=== PATIENT | female | born 1935 | race Caucasian/White ===

== ENCOUNTER 2022-12-04 19:50 | Inpatient (IN) | payer MEDICARE, OTHER ==
[~2022-12-04] VITALS: Ht 142.2 cm; Wt 41.3 kg
[~2022-12-04 19:50] MED LIST: Acetaminophen PO; BISA10SU12 RC; DOCU-141 PO; Gabapentin PO; LOSA50TA39 PO; MENT71OI TOP; Temazepam PO
[2022-12-04] MEDS ORDERED: KETOROLAC TROMETHAMINE 15 MG INJ IVP ONE (20:15)
[2022-12-04] MEDS ORDERED: IV NORMAL SALINE 500 ML IV ONE (20:30)
[2022-12-04] MEDS ORDERED: KETOROLAC TROMETHAMINE 15 MG INJ ONE (20:39)
[2022-12-04 20:58] LABS: BASOPHILS # (AUTO) 0.1 K/UL (0.0-0.2); BASOPHILS % (AUTO) 0.5 % (0.0-2.0); EOSINOPHILS # (AUTO) 0.1 K/uL (0.0-0.7); EOSINOPHILS % (AUTO) 0.7 % (0.0-7.0); HEMATOCRIT 41.7 % (31.2-41.9); HEMOGLOBIN 13.9 g/dL (10.9-14.3); LYMPHOCYTES # (AUTO) 0.5 K/uL (0.8-4.8); MEAN CORPUSCULAR HEMOGLOBIN 28.5 uug (24.7-32.8); MEAN CORPUSCULAR HGB CONC 33 g/dL (32.3-35.6); MEAN CORPUSCULAR VOLUME 85.5 fL (75.5-95.3); MONOCYTES # (AUTO) 0.6 K/uL (0.1-1.30); MONOCYTES % (AUTO) 5.3 % (0.0-11.0); NEUTROPHILS # (AUTO) 10.4 K/uL (1.8-8.9); NEUTROPHILS % (AUTO) 89.5 % (38.5-71.5); PLATELET COUNT (AUTO) 256 K/uL (179-408); RED BLOOD CELL COUNT(AUTO) 4.88 MIL/uL (3.63-4.92); RED CELL DISTRIBUTION WIDTH 14.1 % (12.3-17.7); WHITE BLOOD COUNT (AUTO) 11.6 K/uL (3.8-11.8)
[2022-12-04 20:59] LABS: DIFFERENTIAL COMMENT 1
[2022-12-04 21:12] LABS: ETHANOL < 3 MG/DL (0-10)
[2022-12-04 21:15] LABS: ALANINE AMINOTRANSFERASE 10 U/L (14-59); ALBUMIN 3.7 g/dL (3.4-5.0); ALKALINE PHOSPHATASE 70 U/L (50-136); ASPARTATE AMINOTRANSFERASE 14 U/L (15-37); BILIRUBIN,DIRECT 0.3 mg/dL (0.0-0.2); BILIRUBIN,TOTAL 1.2 mg/dL (0.2-1.0); CALCIUM 9.9 mg/dL (8.5-10.1); CHLORIDE 91 mmol/L (98-107); CREATININE 1.5 mg/dL (0.6-1.3); GLUCOSE 135 mg/dL (74-106); SODIUM SERUM 133 mmol/L (136-145); TOTAL PROTEIN, SERUM 6.9 g/dL (6.4-8.2); UREA NITROGEN, BLOOD 72 mg/dL (7-18)
[2022-12-04 21:23] LABS: POTASSIUM 2.5 mmol/L (3.5-5.1)
[2022-12-04 21:24] LABS: CARBON DIOXIDE 43 mmol/L (21-32)
[2022-12-04] MEDS ORDERED: IV NS 1000 ML 1,000 ML IV ONE (21:30)
[2022-12-04] MEDS ORDERED: LIDOCAINE HCL 1% 20 ML VIAL IJ ONE (21:30)
[2022-12-04] MEDS ORDERED: POTASSIUM CHLORIDE 150 ML ONE (21:48)
[2022-12-04] MEDS ORDERED: MAGNESIUM SULFATE/D5W 200 ML ONE (21:49)
[2022-12-04] MEDS: MAGNESIUM SULFATE/D5W 100 ML IV SCH (21:55)
[2022-12-04] MEDS ORDERED: FURO40TA5 PO (22:54)
[2022-12-04] MEDS ORDERED: CHLO25TA2 PO (22:54)
[2022-12-04] MEDS ORDERED: MAGNESIUM HYDROXIDE 30 ML LIQUID UDC PO PRN (23:00)
[2022-12-04] MEDS ORDERED: ONDANSETRON 4 MG/2 ML VIAL IV PRN (23:00)
[2022-12-04] MEDS ORDERED: REMEDY ESSENTIAL ZINC PASTE 113 GM TP PRN (23:00)
[2022-12-04] MEDS ORDERED: IV NS 1000 ML 1,000 ML IV PRN (23:00)
[2022-12-04] MEDS ORDERED: MORPHINE SULFATE 2 MG/1 ML DISP.SYRIN IV PRN (23:00)
[2022-12-04] MEDS: POTASSIUM CHLORIDE 50 ML IV SCH ×2 (23:23→23:24)
[2022-12-05] MEDS ORDERED: TDAP DIPH,PERTUSS,TET VAC/PF 0.5 ML DISP.SYRIN IM ONE ×2 (00:57→01:45)
[2022-12-05] MEDS: POTASSIUM CHLORIDE 50 ML IV SCH ×5 (01:34→15:47)
[2022-12-05] MEDS ORDERED: IV NORMAL SALINE 500 ML BAG IV ONE (06:30)
[2022-12-05 06:31] LABS: BASOPHILS # (AUTO) 0.1 K/UL (0.0-0.2); BASOPHILS % (AUTO) 0.7 % (0.0-2.0); EOSINOPHILS # (AUTO) 0.1 K/uL (0.0-0.7); EOSINOPHILS % (AUTO) 1.1 % (0.0-7.0); HEMOGLOBIN 12.2 g/dL (10.9-14.3); LYMPHOCYTES # (AUTO) 1.3 K/uL (0.8-4.8); LYMPHOCYTES % (AUTO) 12.5 % (20.5-51.5); MEAN CORPUSCULAR HEMOGLOBIN 29.1 uug (24.7-32.8); MEAN CORPUSCULAR HGB CONC 34 g/dL (32.3-35.6); MEAN CORPUSCULAR VOLUME 86.1 fL (75.5-95.3); MONOCYTES # (AUTO) 0.9 K/uL (0.1-1.30); MONOCYTES % (AUTO) 8.6 % (0.0-11.0); NEUTROPHILS # (AUTO) 8.3 K/uL (1.8-8.9); NEUTROPHILS % (AUTO) 77.1 % (38.5-71.5); PLATELET COUNT (AUTO) 210 K/uL (179-408); RED BLOOD CELL COUNT(AUTO) 4.18 MIL/uL (3.63-4.92); RED CELL DISTRIBUTION WIDTH 14.3 % (12.3-17.7); WHITE BLOOD COUNT (AUTO) 10.8 K/uL (3.8-11.8)
[2022-12-05 06:50] LABS: CALCIUM 8.7 mg/dL (8.5-10.1); CREATININE 1.1 mg/dL (0.6-1.3); MAGNESIUM 3.6 mg/dL (1.8-2.4); PHOSPHOROUS 2.6 mg/dL (2.5-4.9)
[2022-12-05 06:58] LABS: DIFFERENTIAL COMMENT 1
[2022-12-05 07:05] LABS: POTASSIUM 2.8 mmol/L (3.5-5.1)
[2022-12-05] MEDS ORDERED: POTASSIUM CHLORIDE 50 ML ONE ×3 (10:15→15:10)
[2022-12-05] MEDS ORDERED: MORPHINE SULFATE 2 MG/1 ML DISP.SYRIN ONE (10:56)
[2022-12-05] MEDS ORDERED: POTASSIUM CHLORIDE 20 MEQ TAB.PRT.SR PO ONE (14:15)
[2022-12-05] MEDS ORDERED: POTASSIUM CHLORIDE 20 MEQ TAB.PRT.SR ONE (15:57)
[2022-12-06] MEDS ORDERED: diphenhydrAMINE 50 MG/1 ML VIAL IV PRN
[2022-12-06 06:47] LABS: BASOPHILS % (AUTO) 0.4 % (0.0-2.0); EOSINOPHILS # (AUTO) 0.3 K/uL (0.0-0.7); EOSINOPHILS % (AUTO) 2.5 % (0.0-7.0); HEMATOCRIT 37.1 % (31.2-41.9); HEMOGLOBIN 12.3 g/dL (10.9-14.3); LYMPHOCYTES % (AUTO) 9.3 % (20.5-51.5); MEAN CORPUSCULAR HEMOGLOBIN 28.8 uug (24.7-32.8); MEAN CORPUSCULAR HGB CONC 33 g/dL (32.3-35.6); MEAN CORPUSCULAR VOLUME 86.9 fL (75.5-95.3); MONOCYTES # (AUTO) 0.7 K/uL (0.1-1.30); MONOCYTES % (AUTO) 6.3 % (0.0-11.0); NEUTROPHILS # (AUTO) 8.6 K/uL (1.8-8.9); NEUTROPHILS % (AUTO) 81.5 % (38.5-71.5); PLATELET COUNT (AUTO) 166 K/uL (179-408); RED BLOOD CELL COUNT(AUTO) 4.27 MIL/uL (3.63-4.92); RED CELL DISTRIBUTION WIDTH 14.5 % (12.3-17.7); WHITE BLOOD COUNT (AUTO) 10.6 K/uL (3.8-11.8)
[2022-12-06 06:55] LABS: DIFFERENTIAL COMMENT 1
[2022-12-06 06:56] LABS: CALCIUM 8.8 mg/dL (8.5-10.1); CARBON DIOXIDE 36 mmol/L (21-32); CHLORIDE 101 mmol/L (98-107); CREATININE 0.8 mg/dL (0.6-1.3); GLUCOSE 104 mg/dL (74-106); POTASSIUM 4.2 mmol/L (3.5-5.1); SODIUM SERUM 135 mmol/L (136-145); UREA NITROGEN, BLOOD 33 mg/dL (7-18)
[2022-12-06] MEDS: ACETAMINOPHEN 325 MG TABLET PO PRN ×2 (11:31→17:35)
[2022-12-06 11:43] VITALS: BP 132/76; TEMP 97.8; O2SAT 96
[2022-12-06 16:00] VITALS: BP 128/59; TEMP 98.2; O2SAT 95
[2022-12-06] MEDS: IV NS 1000 ML 1,000 ML IV PRN ×2 (16:52→17:09)
[2022-12-06 20:51] VITALS: BP 102/53; TEMP 97.8; O2SAT 99
[2022-12-07] MEDS: ACETAMINOPHEN 325 MG TABLET PO PRN ×3 (06:00→18:39)
[2022-12-07 06:13] VITALS: BP 124/66; TEMP 98
[2022-12-07 06:30] LABS: BASOPHILS % (AUTO) 0.4 % (0.0-2.0); EOSINOPHILS # (AUTO) 0.4 K/uL (0.0-0.7); EOSINOPHILS % (AUTO) 4.5 % (0.0-7.0); HEMATOCRIT 35.3 % (31.2-41.9); HEMOGLOBIN 11.8 g/dL (10.9-14.3); LYMPHOCYTES # (AUTO) 1.4 K/uL (0.8-4.8); LYMPHOCYTES % (AUTO) 14.6 % (20.5-51.5); MEAN CORPUSCULAR HGB CONC 33 g/dL (32.3-35.6); MEAN CORPUSCULAR VOLUME 86.6 fL (75.5-95.3); MONOCYTES # (AUTO) 0.7 K/uL (0.1-1.30); NEUTROPHILS # (AUTO) 6.7 K/uL (1.8-8.9); NEUTROPHILS % (AUTO) 72.5 % (38.5-71.5); PLATELET COUNT (AUTO) 205 K/uL (179-408); RED BLOOD CELL COUNT(AUTO) 4.07 MIL/uL (3.63-4.92); RED CELL DISTRIBUTION WIDTH 14.5 % (12.3-17.7); WHITE BLOOD COUNT (AUTO) 9.3 K/uL (3.8-11.8)
[2022-12-07 06:41] LABS: DIFFERENTIAL COMMENT 1
[2022-12-07 06:45] LABS: CALCIUM 8.5 mg/dL (8.5-10.1); CARBON DIOXIDE 35 mmol/L (21-32); CHLORIDE 105 mmol/L (98-107); CREATININE 1.2 mg/dL (0.6-1.3); GLUCOSE 98 mg/dL (74-106); POTASSIUM 3.8 mmol/L (3.5-5.1); SODIUM SERUM 142 mmol/L (136-145); UREA NITROGEN, BLOOD 35 mg/dL (7-18)
[2022-12-07 09:31] VITALS: BP 106/70; TEMP 98
[2022-12-07] MEDS ORDERED: IBUP-1955 PO (12:13)
[2022-12-07 20:00] VITALS: BP 119/64; TEMP 99; O2SAT 94
[2022-12-08] VITALS: BP 115/68; TEMP 98.4; O2SAT 96
[2022-12-08 04:00] VITALS: BP 151/74; TEMP 98.5; O2SAT 96
[2022-12-08] MEDS: ACETAMINOPHEN 325 MG TABLET PO PRN ×2 (05:46→15:03)
[2022-12-08 09:00] VITALS: BP 148/72; TEMP 98; O2SAT 94
[2022-12-08] MEDS: IV NS 1000 ML 1,000 ML IV PRN (09:56)
[2022-12-08 11:28] VITALS: BP 146/69; TEMP 98.2; O2SAT 94
[2022-12-08] MEDS ORDERED: NEOMY/BACITRAC/POLYMI OINT 28.35 GM TUBE TOP SCH (14:00)
[2022-12-08 16:48] VITALS: BP 149/74; TEMP 98.6; O2SAT 94
== END 2022-12-08 19:30 | DRG 562 ==
LOC: ER 19:54 → TRANSITION 12-05 02:20 → TELE3 12-06 09:48
PROVIDERS: ADMIT Internal Medicine; ATTEND Internal Medicine
DX: S52.501A Unspecified fracture of the lower end of right radius, initial encounter for closed fracture (principal); N17.0 Acute kidney failure with tubular necrosis; E87.1 Hypo-osmolality and hyponatremia; E86.1 Hypovolemia; E87.6 Hypokalemia; I10 Essential (primary) hypertension; S01.81XA Laceration without foreign body of other part of head, initial encounter; W19.XXXA Unspecified fall, initial encounter; Y93.9 Activity, unspecified; Y92.009 Unspecified place in unspecified non-institutional (private) residence as the place of occurrence of the external cause
CPT/HCPCS: 36415; 70450; 71045; 72125; 73110; 83735; 84100; 84484; 85025; 85730; 90715; 93005; A4663; G0378; G0480; J1885; J2270; J3475; J3480; J3490; J7040